=== PATIENT | female | born 1945 | race Caucasian/White ===

== ENCOUNTER 2024-07-26 10:48 | Day surgery (SDC) | payer MEDICARE, BC ==
[2024-07-24 11:05] VITALS: BMI 33.2
[2024-07-26] MEDS ORDERED: Bupivacaine HCl 0.5%/Epinephrine 1:200,000/PF 30 ml Vial ONE (14:09)
[2024-07-26] MEDS ORDERED: CEFAZOLIN 2 GM VIAL ONE (14:17)
[2024-07-26] MEDS ORDERED: Lidocaine 1% PF 5 ML VIAL ONE (15:17)
[2024-07-26] MEDS ORDERED: PROPOFOL 20 ML ONE (15:17)
[2024-07-26] MEDS ORDERED: fentaNYL 50 mcg/mL 1 mL Vial ONE ×2 (15:17→15:35)
[2024-07-26] MEDS ORDERED: ePHEDrine Sulfate 50 MG/10 ML VIAL ONE (15:43)
== END 2024-07-26 17:50 | disposition home or self-care (01) ==
LOC: CSHSDC 10:48
PROVIDERS: ATTEND Surgery
PROC: 0HBT0ZZ Excision of Right Breast, Open Approach (ICD-10-PCS; principal; 2024-07-26)
DX: D05.11 Intraductal carcinoma in situ of right breast (principal); D24.1 Benign neoplasm of right breast; N60.11 Diffuse cystic mastopathy of right breast; N60.21 Fibroadenosis of right breast; N62 Hypertrophy of breast; I35.1 Nonrheumatic aortic (valve) insufficiency; I12.9 Hypertensive chronic kidney disease with stage 1 through stage 4 chronic kidney disease, or unspecified chronic kidney disease; N18.4 Chronic kidney disease, stage 4 (severe); E11.22 Type 2 diabetes mellitus with diabetic chronic kidney disease; E78.2 Mixed hyperlipidemia; E03.9 Hypothyroidism, unspecified; D56.9 Thalassemia, unspecified; K21.9 Gastro-esophageal reflux disease without esophagitis; G47.33 Obstructive sleep apnea (adult) (pediatric); E66.01 Morbid (severe) obesity due to excess calories; Z68.33 Body mass index [BMI] 33.0-33.9, adult; Z96.651 Presence of right artificial knee joint; Z90.49 Acquired absence of other specified parts of digestive tract; Z90.89 Acquired absence of other organs; Z88.5 Allergy status to narcotic agent; Z79.890 Hormone replacement therapy; Z79.82 Long term (current) use of aspirin; Z79.51 Long term (current) use of inhaled steroids; Z79.899 Other long term (current) drug therapy
CPT/HCPCS: 19301; 76098; C1713; J2704; J3010; 88307

== ENCOUNTER 2025-02-26 12:53 | Outpatient (CLI) | payer MEDICARE, BC | END 2025-02-26 12:54 | disposition home or self-care (01) | LOC: CSHMAMMO 12:53 | PROVIDERS: ATTEND Surgery | DX: Z08 Encounter for follow-up examination after completed treatment for malignant neoplasm (principal); Z85.3 Personal history of malignant neoplasm of breast | CPT/HCPCS: 77066; G0279 ==